=== PATIENT | female | born 1975 | race Caucasian/White ===

== ENCOUNTER 2017-02-15 19:59 | Emergency (ER) | payer OTHER ==
[~2017-02-15] VITALS: Ht 162.6 cm; Wt 68.0 kg
[2017-02-15 20:35] VITALS: BP 129/83
[2017-02-15] MEDS ORDERED: DOXY100T PO (20:52)
--- NOTE | 2017-02-15 20:53 | PHYS DOC ---
Past Medical History Past Medical History: Other Additional Past Medical Histor: [place] SPOTTED FEVER Past Surgical History: Cholecystectomy Additional Past Surgical Histo: LIPOMA, WISDOM TEETH Alcohol Use: None Drug Use: None Adult General Chief Complaint Chief Complaint: INSECT BITE [facility] HPI Patient is a 41 year old female with history of [place] spotted fever who presents today with tick bite to the left lower quadrant that she noted today. Patient states she successfully removed the tick. Patient is requesting doxycycline due to her history of [place] spotted fever which she had last year from tick bite. She has no symptoms today. Review of Systems Review of Systems Constitutional: Denies fever or chills [] Eyes: Denies change in visual acuity, redness, or eye pain [] HENT: Denies nasal congestion or sore throat [] Respiratory: Denies cough or shortness of breath [] Cardiovascular: No additional information not addressed in HPI [] GI: Denies abdominal pain, nausea, vomiting, bloody stools or diarrhea [] : Denies dysuria or hematuria [] Musculoskeletal: Denies back pain or joint pain [] Integument: Tick bites to the left lower quadrant Neurologic: Denies headache, focal weakness or sensory changes [] Endocrine: Denies polyuria or polydipsia [] Allergies Allergies Allergies Coded Allergies Type Severity Reaction Last Updated Verified No Known Drug Allergies 02/15/17 No Physical Exam Physical Exam Constitutional: Well developed, well nourished, no acute distress, non-toxic appearance. [] HENT: Normocephalic, atraumatic, bilateral external ears normal, oropharynx moist, no oral exudates, nose normal. [] Eyes: PERRLA, EOMI, conjunctiva normal, no discharge. [] Neck: Normal range of motion, no tenderness, supple, no stridor. [] Cardiovascular:Heart rate regular rhythm, no murmur [] Lungs & Thorax: Bilateral breath sounds clear to auscultation [] Abdomen: Bowel sounds normal, soft, no tenderness, no masses, no pulsatile masses. [] Skin: Left lower quadrant with a tiny erythematous area approximately 0.1 x 0.1 cm consistent with a bite. Back: No tenderness, no CVA tenderness. [] Extremities: No tenderness, no cyanosis, no clubbing, ROM intact, no edema. [] Neurologic: Alert and oriented X 3, normal motor function, normal sensory function, no focal deficits noted. [] Psychologic: Affect normal, judgement normal, mood normal. [] Current Patient Data Vital Signs Vital Signs Date Time Temp Pulse Resp B/P (MAP) Pulse Ox O2 Delivery O2 Flow Rate FiO2 02/15/17 20:35 97.9 94 18 99 Room Air 97.9 EKG EKG [] Radiology/Procedures Radiology/Procedures [] Course & Med Decision Making Course & Med Decision Making Pertinent Labs and Imaging studies reviewed. (See chart for details) Patient has tick bite to the left lower quadrant, she successfully removed the tick herself. She is in the ED requesting doxycycline stating she has history of [place] spotted fever last year from tick bite. She was given a prescription for doxycycline. She has no symptoms today. She is to follow-up with her doctor in the course of this week. She was provided return precautions. Dragon Disclaimer Dragon Disclaimer This electronic medical record was generated, in whole or in part, using a voice recognition dictation system. Departure Departure Impression: Primary Impression: Tick bite Disposition: 01 HOME, SELF-CARE Condition: STABLE Referrals: NON,STAFF (PCP) please follow up with your doctor tomorrow Patient Instructions: [place] Tick Bite, [place] Tick Bite Additional Instructions: You were seen for tick bite. Take doxycycline as prescribed. Follow-up with your doctor tomorrow. Scripts Doxycycline Hyclate (DOXYCYCLINE HYCLATE) 100 Mg Capsule 1 CAP PO BID, #42 CAP Prov: DURGATRACI ANDRADE APRN 02/15/17 Doxycycline Hyclate (DOXYCYCLINE HYCLATE) 100 Mg Tablet 1 TAB PO BID, #42 TAB Prov: TRACI RIVERA APRN 02/15/17 Problem Qualifiers Primary Impression: Tick bite Encounter type: initial encounter Qualified Codes: W57.XXXA - Bitten or stung by nonvenomous insect and other nonvenomous arthropods, initial encounter TRACI RIVERA APRN February 15, 2017 20:53
[2017-02-15] MEDS ORDERED: DOXY100C2 PO (20:56)
== END 2017-02-15 20:54 | disposition home or self-care (01) ==
LOC: ER 20:36
DX: S30.861A Insect bite (nonvenomous) of abdominal wall, initial encounter (principal); Z90.49 Acquired absence of other specified parts of digestive tract; W57.XXXA Bitten or stung by nonvenomous insect and other nonvenomous arthropods, initial encounter; Y93.89 Activity, other specified; Y99.8 Other external cause status; Y92.89 Other specified places as the place of occurrence of the external cause
CPT/HCPCS: 99283